=== PATIENT | female | born 1955 | race African-American/Black ===

== ENCOUNTER 2017-08-11 21:26 | Emergency (ER) | payer OTHER, BC ==
[2017-08-11 21:39] VITALS: BP 123/76; PULSE 82; TEMP 98.4; BMI 28.5
--- NOTE | 2017-08-11 22:21 | PDOC ---
History of Present Illness - General Chief Complaint: Injury Stated Complaint: CUT LEFT MIDDLE FINGER ON BROKEN CERAMIC DISH Time Seen by Provider: 08/11/17 21:29 - History of Present Illness Initial Comments: This 61-year-old woman presents with laceration to the dorsum of her left third finger. Patient sustained this wound a few hours prior to presentation when she cut the area against a very sharp edge of a ceramic plate. Patient states that ceramic plate was in a store and quite soiled. She states that the area bled quite a bit and that she washed the area out and was given an alcohol pad at the store to clean the area. She presents because she is concerned about hand infections (patient had serious hand infection 4 years ago after fishbone punctured her finger). Also, her right hand is weak secondary to her neurologic condition and the patient is concerned about any injury to her dominant, left hand. Last tetanus prophylaxis was 4 years ago the fishbone puncture wound No other history of cellulitis or resistant organism colonization/infection Past History - Past Medical History Allergies/Adverse Reactions: Allergies Allergy/AdvReac Type Severity Reaction Status Date / Time clarithromycin [From Biaxin] Allergy Verified 08/11/17 21:27 Home Medications: Ambulatory Orders Clonazepam [Klonopin] 1 mg PO PRN 08/11/17 Dexmethylphenidate HCl [Focalin] 5 mg PO PRN 08/11/17 COPD: No - Immunization History Td Vaccination: Yes Immunization Up to Date: (UNSURE) - Suicide/Smoking/Psychosocial Hx Smoking Status: No Smoking History: Never smoked Have you smoked in the past 12 months: No Number of Cigarettes Smoked Daily: 0 Information on smoking cessation initiated: No Hx Alcohol Use: Yes Drug/Substance Use Hx: No Substance Use Type: None Review of Systems - Review of Systems Able to Perform ROS?: Yes Comments:: 12 point review of systems is negative except for what is noted in the history of present illness *Physical Exam - Vital Signs Last Vital Signs Temp Pulse Resp BP Pulse Ox 98.4 F 82 16 123/76 100 08/11/17 21:34 08/11/17 21:34 08/11/17 21:34 08/11/17 21:34 08/11/17 21:34 - Physical Exam Comments: GENERAL: Adult female, alert and oriented 3, in no acute distress EXTREMITIES: Left hand-third finger :0.5 cm superficial, linear, horizontal laceration dorsum of the DIP joint No active bleeding; passive and active ROM intact; distal digit is warm and dry with excellent capillary refill Remainder of extremity exam is normal NEUROLOGICAL: Cranial nerves II through XII grossly intact. Normal speech. No focal neurological deficits. MUSCULOSKELETAL: Back non-tender to palpation, no CVA tenderness SKIN: As above, otherwise no acute dermatologic issues Superficial laceration of the third finger, left hand thoroughly cleansed using 30 mL of sterile normal saline. Under sterile conditions, sterile 2 x 2 gauze pad, moistened with sterile normal saline used to carefully debride area of any adherent debris. Bacitracin ointment applied to the wound, followed by a Band-Aid. Patient carefully instructed to observe the area of the wound and return if it becomes swollen/painful/erythematous or there is any drainage from the area. Also, if she has increased pain with movement of the finger, she should follow- up here or with her own physician *DC/Admit/Observation/Transfer Diagnosis at time of Disposition: Laceration of finger of left hand Qualifiers: Encounter type: initial encounter Finger: middle finger Damage to nail status: without damage Foreign body presence: without foreign body Qualified Code(s): S61.213A - Laceration without foreign body of left middle finger without damage to nail, initial encounter - Discharge Dispostion Disposition: HOME Condition at time of disposition: Stable - Referrals - Patient Instructions Printed Discharge Instructions: DI for Minor Laceration Additional Instructions: Bacitracin/Band-Aid to laceration daily for the next few days Can leave cut open to air after 2-3 days Return if area becomes red/swollen/more painful - Post Discharge Activity
== END 2017-08-11 22:27 | disposition home or self-care (01) ==
LOC: FER 21:26
DX: S61.213A Laceration without foreign body of left middle finger without damage to nail, initial encounter (principal); W45.8XXA Other foreign body or object entering through skin, initial encounter; Y93.89 Activity, other specified; Y92.9 Unspecified place or not applicable
CPT/HCPCS: 99281-25